=== PATIENT | female | born 1995 | race Caucasian/White ===

== ENCOUNTER 2017-05-30 01:01 | Emergency (ER) | payer SELFPAY ==
[2017-05-30 01:10] VITALS: BP 138/80; PULSE 76; TEMP 98.3; BMI 22.7
[2017-05-30] MEDS ORDERED: IBUPROFEN 400 MG TABLET (FP) PO ONE ×2 (01:21→01:28)
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
== END 2017-05-30 01:42 | disposition home or self-care (01) ==
LOC: FER 01:01
DX: M54.9 Dorsalgia, unspecified (principal); V43.52XA Car driver injured in collision with other type car in traffic accident, initial encounter; Y93.89 Activity, other specified; Y92.410 Unspecified street and highway as the place of occurrence of the external cause
CPT/HCPCS: 99283-25

== ENCOUNTER 2020-09-26 06:08 | Emergency (ER) | payer OTHER ==
[2020-09-26 06:13] VITALS: BP 112/80; PULSE 82; TEMP 98.2; BMI 23.8
[2020-09-26] MEDS ORDERED: KETOROLAC TROMETHAMINE 60 MG/2 ML VIAL IM ONE (06:49)
[2020-09-26] MEDS ORDERED: KETOROLAC TROMETHAMINE 30 MG/1 ML VIAL ONE (06:53)
== END 2020-09-26 07:15 | disposition home or self-care (01) ==
LOC: FER 06:08
PROC: 3E0233Z Introduction of Anti-inflammatory into Muscle, Percutaneous Approach (ICD-10-PCS; principal; 2020-09-26)
DX: M62.838 Other muscle spasm (principal)
CPT/HCPCS: 96372; 99284-25